=== PATIENT | female | born 1995 | race Caucasian/White ===

== ENCOUNTER 2017-03-26 13:46 | Emergency (ER) | payer BC ==
[~2017-03-26] VITALS: Ht 162.6 cm; Wt 59.0 kg
[~2017-03-26 13:46] MED LIST: IBUPROFEN 600600 M1 PO; NORCO 5-325 TA1 EACH PO; ROBAXIN500 MG PO; SPRINTEC1 EACH PO
[2017-03-26] MEDS ORDERED: BIRTH CONTROL (14:00)
[2017-03-26] MEDS ORDERED: MULTIVITAMINS1 EAC7 PO (14:00)
[2017-03-26 14:22] LABS: ABSOLUTE EOSINOPHILS 0.1 thou/uL (0.0-0.7); ABSOLUTE LYMPHOCYTES 2.6 thou/uL (0.8-5.3); ABSOLUTE MONOCYTES 0.4 thou/uL (0.0-1.2); ABSOLUTE NEUTROPHILS 3.1 thou/uL (1.6-8.1); BASOPHILS 0.4 %; EOSINOPHILS 0.9 %; HEMOGLOBIN 13.2 gm/dL (12.0-15.0); LYMPHOCYTES 42.3 %; MCH 31.1 pg (26.0-34.0); MCHC 33.7 g/dL (28.0-37.0); MCV 92.2 fL (80.0-100.0); MPV 8.3 fl. (7.2-11.1); NUCLEATED RBCS 0 /100WBC; PLATELET COUNT* 252 thou/uL (150-400); POLYS 50.4 %; RBC 4.23 mil/uL (4.20-5.00); RDW-CV 13.2 % (10.5-14.5); WBC 6.2 thou/uL (4.0-11.0)
[2017-03-26 14:27] LABS: ANION GAP 9 mmol/L (7-16); BUN 12 mg/dL (7-18); CALCIUM 8.7 mg/dL (8.5-10.1); CHLORIDE 107 mmol/L (98-107); CO2 25 mmol/L (21-32); CREATININE 0.8 mg/dL (0.6-1.3); GLUCOSE 72 mg/dL (70-99); POTASSIUM 3.9 mmol/L (3.5-5.1); SODIUM 141 mmol/L (136-145)
[2017-03-26 14:31] LABS: APTT 28.2 Seconds (25.0-31.3); INR 1.2; PROTIME 11.2 Seconds (9.20-11.50)
[2017-03-26 14:38] LABS: ALBUMIN 3.7 g/dL (3.4-5.0); ALKALINE PHOSPHATASE 60 U/L (46-116); LIPASE 266 U/L (73-393); NT-PRO BRAIN NAT PEPTIDE 13 pg/mL (<300); SGOT 24 U/L (15-37); SGPT 15 U/L (30-65); TOTAL BILIRUBIN 0.5 mg/dL (<0.1-1.0); TOTAL PROTEIN 7.3 g/dL (6.4-8.2)
[2017-03-26 14:53] LABS: TROPONIN-I LEVEL <0.06 ng/mL (<0.06)
[2017-03-26 16:16] VITALS: BP 104/62
--- NOTE | 2017-03-27 14:31 | EKG ---
[place] [address] ELECTROCARDIOGRAM REPORT Name: HOLLY NO Room: [facility]#: [id number] Admission: 03/26/17 Attend Phys: Discharge: 03/26/17 Date of : [birth year] Report #: [id number] THIS REPORT FOR: //name// [facility] ED Test Date: 2017-03-26 Test Time: 14:21:24 Pat Name: HOLLY NO Department: Room: Gender: F Interpreter Translator: RAGHAVENDRA : 1995 Requested By: Jessica Molina Order Number: [id number] MD: Edgar Cavanaugh Measurements Intervals [place] Rate: 76 P: 48 [place]: 150 QRS: 73 QRSD: 87 T: 27 QT: 380 QTc: 428 Interpretive Statements Sinus rhythm No previous ECG available for comparison Electronically Signed On 03-27-2017 14:31:06 EDUCATION DIAGNOSTICIAN by Edgar Cavanaugh [email or web address] <ELECTRONICALLY SIGNED> By: Edgar Cavanaugh MD, [facility] 03/27/17 1431 1421 1421 Edgar Cavanaugh MD, FACC /EPI
== END 2017-03-26 16:18 | disposition home or self-care (01) ==
LOC: M.ERS 13:46
PROVIDERS: Physician Assistant
DX: R06.00 Dyspnea, unspecified (principal)

== ENCOUNTER 2017-04-15 08:47 | Emergency (ER) | payer BC ==
[~2017-04-15] VITALS: Ht 162.6 cm; Wt 59.4 kg
[~2017-04-15 08:47] MED LIST changes: +BIRTH CONTROL; +MULTIVITAMINS1 EAC7 PO
[2017-04-15] MEDS ORDERED: COLCHICINE0.6 M1 PO (09:04)
[2017-04-15 09:45] LABS: HEMATOCRIT 39.8 % (37.0-47.0); HEMOGLOBIN 13.4 gm/dL (12.0-15.0); MCH 31.2 pg (26.0-34.0); MCHC 33.7 g/dL (28.0-37.0); MCV 92.3 fL (80.0-100.0); MPV 7.8 fl. (7.2-11.1); NUCLEATED RBCS 0 /100WBC; PLATELET COUNT* 195 thou/uL (150-400); RBC 4.31 mil/uL (4.20-5.00); RDW-CV 13.1 % (10.5-14.5); WBC 6.9 thou/uL (4.0-11.0)
[2017-04-15 09:51] LABS: CALCIUM 8.5 mg/dL (8.5-10.1); CREATININE 0.9 mg/dL (0.6-1.3); POTASSIUM 3.5 mmol/L (3.5-5.1)
[2017-04-15 09:56] LABS: ALBUMIN 3.8 g/dL (3.4-5.0); TOTAL BILIRUBIN 0.4 mg/dL (<0.1-1.0); TOTAL PROTEIN 7.7 g/dL (6.4-8.2)
[2017-04-15 09:58] LABS: BE -1.1 mmol/L (-2 to +3); HCO3 21.8 mmol/L (22.0-26.0); PCO2 31.4 mmHg (35.0-45.0); PO2 88.3 mmHg (75.0-100.0)
[2017-04-15 10:18] LABS: ABSOLUTE LYMPHOCYTES 1.1 thou/uL (0.8-5.3); ABSOLUTE MONOCYTES 0.2 thou/uL (0.0-1.2); ABSOLUTE NEUTROPHILS 5.6 thou/uL (1.6-8.1)
[2017-04-15 10:19] LABS: ANISOCYTOSIS 1+; PLATELET ESTIMATE ADEQUATE; POIKILOCYTOSIS 1+
[2017-04-15 10:57] LABS: ESR (SEDRATE) 25 mm/hr (0-20)
[2017-04-15] MEDS ORDERED: OSELB75 PO (11:49)
[2017-04-15] MEDS ORDERED: OXYCODONE-IBUP1 EACH PO (11:49)
[2017-04-15 12:09] VITALS: BP 119/73
--- NOTE | 2017-04-15 16:04 | EKG ---
[place] [address] ELECTROCARDIOGRAM REPORT Name: HOLLY NO Room: [facility]#: [id number] Admission: 04/15/17 Attend Phys: Discharge: 04/15/17 Date of : [birth year] Report #: [id number] THIS REPORT FOR: //name// [facility] ED Test Date: 2017-04-15 Test Time: 09:20:48 Pat Name: HOLLY NO Department: Room: Gender: F Final Assembly Inspector: Lit OSMAN : 1995 Requested By: Mila Marshall Order Number: [id number] MD: Candido Hewitt Measurements Intervals [place] Rate: 89 P: 57 [place]: 137 QRS: 81 QRSD: 84 T: 20 QT: 339 QTc: 413 Interpretive Statements Sinus rhythm Compared to ECG 03/26/2017 14:21:24 No significant changes Electronically Signed On 04-15-2017 16:04:10 HAY BUCKLER by Candido Hewitt [email or web address] <ELECTRONICALLY SIGNED> By: Candido Hewitt MD, [facility] 04/15/17 1604 0920 9 Candido Hewitt MD, FACC /EPI
== END 2017-04-15 12:11 | disposition home or self-care (01) ==
LOC: M.ERS 08:47
PROVIDERS: Personal Emergency Response Attendant
DX: J10.1 Influenza due to other identified influenza virus with other respiratory manifestations (principal); Z88.6 Allergy status to analgesic agent; Z91.048 Other nonmedicinal substance allergy status